=== PATIENT | female | born 1970 | race Two or more races ===

== ENCOUNTER 2018-06-28 17:11 | Emergency (ER) | payer BC ==
[~2018-06-28] VITALS: Ht 132.1 cm; Wt 34.5 kg
[2018-06-28] MEDS ORDERED: ONDANSETRON HCL/PF 4 MG/2 ML VIAL ONE (18:27)
[2018-06-28] MEDS ORDERED: IV NS 0.9% 1,000 ML BAG IV ONE (18:30)
[2018-06-28] MEDS ORDERED: ACETAMINOPHEN 325 MG TABLET PO ONE (18:30)
[2018-06-28] MEDS ORDERED: ONDANSETRON HCL/PF 4 MG/2 ML VIAL IVP ONE (18:30)
[2018-06-28] MEDS ORDERED: ACETAMINOPHEN ES 500 MG TABLET ONE (18:56)
--- NOTE | 2018-06-28 19:00 | NUR ---
NAUSEA AND VOMITING SINCE THURSDAY, CHILLS. PT AXO4
--- NOTE | 2018-06-28 19:30 | NUR ---
TECH AT BEDSIDE FOR EKG
[2018-06-28 19:49] VITALS: BP 100/43
[2018-06-28] MEDS ORDERED: OSELTAMIVIR PHOSPHATE 75 MG CAPSULE ONE (19:53)
[2018-06-28] MEDS ORDERED: OSELTAMIVIR PHOSPHATE 75 MG CAPSULE PO ONE (20:00)
--- NOTE | 2018-06-28 20:36 | NUR ---
IV removed. Catheter intact and site benign. Pressure and 4x4 applied to site. No bleeding noted.Patient discharged to home in stable condition. Written and verbal after care instructions given. Patient verbalizes understanding of instruction. PT AMBULATORY WITH STEADY GAIT.
== END 2018-06-28 20:38 | disposition home or self-care (01) ==
LOC: ER 17:11
DX: J10.1 Influenza due to other identified influenza virus with other respiratory manifestations (principal); R11.2 Nausea with vomiting, unspecified; R00.0 Tachycardia, unspecified; Z98.890 Other specified postprocedural states; Z88.5 Allergy status to narcotic agent
CPT/HCPCS: 87400; J2405; J7030